=== PATIENT | male | born 1970 | race Caucasian/White ===

== ENCOUNTER 2017-08-13 06:52 | Observation (INO) | payer SELFPAY ==
[~2017-08-13] VITALS: Ht 172.7 cm; Wt 63.5 kg
[2017-08-13] VITALS (8 sets, daily range): BP systolic 100–163; BP diastolic 62–73; PULSE 62–87; RESP 16–18; TEMP 97.4–98.8; O2SAT 97–100
[~2017-08-13 06:52] MED LIST: LAMO25 PO; PANT20 PO; PRAZ5CAP PO
[2017-08-13] MEDS ORDERED: ASPIRIN 325 MG TAB PO ONE (07:30)
[2017-08-13] MEDS ORDERED: SODIUM CHLORIDE 0.9% FLUSH 10 ML FLUSH IVF PRN (07:30)
--- NOTE | 2017-08-13 07:37 | PD ---
HPI Chief Complaint: Chest Pain Time Seen by Provider: 07:25 Travel History International Travel<30 days: No Contact w/Intl Traveler<30days: No Traveled to known affect area: No History of Present Illness HPI This patient complains of chest pain. Location is left upper chest. He says it feels like somebody sitting on him. He says it radiates toward his left arm. Duration 90 minutes. Severity is moderate. Denies shortness of breath or productive cough or fever. Patient smokes crack cocaine and his last use was 2 days ago. He denies ever using IV drugs. No history of cardiac disease. No alleviating factors. No exacerbating factors. PFSH Past Medical History Psychiatric: Yes (PTSD) Social History Alcohol Use: Yes Tobacco Use: Yes (1 PPD) Substance Use: Yes (Smokes cocaine) Allergies-Medications (Allergen,Severity, Reaction): Coded Allergies: No Known Allergies (Unverified , 07/13/17) Reported Meds & Prescriptions Reported Meds & Active Scripts Active Reported Prazosin (Prazosin HCl) 5 Mg Cap 5 Mg PO BID Protonix (Pantoprazole Sodium) 20 Mg Tab 20 Mg PO DAILY Lamictal (Lamotrigine) 25 Mg Tab 25 Mg PO BID Review of Systems General / Constitutional: No: Fever Eyes: No: Visual changes HENT: No: Headaches Cardiovascular: Positive: Chest Pain or Discomfort Respiratory: No: Shortness of Breath Gastrointestinal: No: Abdominal Pain Genitourinary: No: Dysuria Musculoskeletal: No: Pain Skin: No Rash Neurologic: No: Weakness Psychiatric: Positive: Substance Abuse, No: Depression Endocrine: No: Polydipsia Hematologic/Lymphatic: No: Easy Bruising Physical Exam Narrative GENERAL: Well-nourished, well-developed patient in no apparent distress. SKIN: Focused skin assessment reveals no rash and nodules. Skin is Warm and dry. HEAD: Atraumatic. Normocephalic. EYES: Pupils equal and round. No scleral icterus. No injection or drainage. ENT: No nasal bleeding or discharge. Mucous membranes pink and moist. NECK: Trachea midline. No JVD. CARDIOVASCULAR: Regular rate and rhythm. No murmur appreciated. RESPIRATORY: No accessory muscle use. Clear to auscultation. Breath sounds equal bilaterally. GASTROINTESTINAL: Abdomen soft, non-tender, nondistended. Hepatic and splenic margins not palpable. MUSCULOSKELETAL: No obvious deformities. No clubbing. No cyanosis. No edema. NEUROLOGICAL: Awake and alert. No obvious cranial nerve deficits. Motor grossly within normal limits. Normal speech. PSYCHIATRIC: Appropriate mood and affect; insight and judgment seems weak . Data Data Last Documented VS Vital Signs Date Time Temp Pulse Resp B/P (MAP) Pulse Ox O2 Delivery O2 Flow Rate FiO2 08/13/17 11:04 62 17 100/62 (75) 97 Room Air 08/13/17 07:00 97.4 Orders Orders Electrocardiogram (08/13/17 07:30) Basic Metabolic Panel (Bmp) (08/13/17 07:30) Ckmb (Isoenzyme) Profile (08/13/17 07:30) Complete Blood Count With Diff (08/13/17 07:30) Prothrombin Time / Inr (Pt) (08/13/17 07:30) Act Partial Throm Time (Ptt) (08/13/17 07:30) Troponin I (08/13/17 07:30) Chest, Single Ap (08/13/17 07:30) Ecg Monitoring (08/13/17 07:30) Iv Access Insert/Monitor (08/13/17 07:30) Oximetry (08/13/17 07:30) Aspirin (Aspirin) (08/13/17 07:30) Sodium Chloride 0.9% Flush (Ns Flush) (08/13/17 07:30) Labs Laboratory Tests Test 08/13/17 07:56 White Blood Count 5.0 TH/MM3 Red Blood Count 4.44 MIL/MM3 Hemoglobin 13.7 GM/DL Hematocrit 40.7 % Mean Corpuscular Volume 91.8 FL Mean Corpuscular Hemoglobin 30.9 PG Mean Corpuscular Hemoglobin Concent 33.7 % Red Cell Distribution Width 13.2 % Platelet Count 258 TH/MM3 Mean Platelet Volume 8.2 FL Neutrophils (%) (Auto) 60.7 % Lymphocytes (%) (Auto) 26.0 % Monocytes (%) (Auto) 10.5 % Eosinophils (%) (Auto) 2.0 % Basophils (%) (Auto) 0.8 % Neutrophils # (Auto) 3.0 TH/MM3 Lymphocytes # (Auto) 1.3 TH/MM3 Monocytes # (Auto) 0.5 TH/MM3 Eosinophils # (Auto) 0.1 TH/MM3 Basophils # (Auto) 0.0 TH/MM3 CBC Comment DIFF FINAL Differential Comment Prothrombin Time 11.1 SEC Prothromb Time International Ratio 1.1 RATIO Activated Partial Thromboplast Time 25.0 SEC Blood Urea Nitrogen 7 MG/DL Creatinine 1.10 MG/DL Random Glucose 97 MG/DL Calcium Level 8.8 MG/DL Sodium Level 143 MEQ/L Potassium Level 4.1 MEQ/L Chloride Level 107 MEQ/L Carbon Dioxide Level 29.3 MEQ/L Anion Gap 7 MEQ/L Estimat Glomerular Filtration Rate 72 ML/MIN Total Creatine Kinase 82 U/L Troponin I LESS THAN 0.02 NG/ML MDM Medical Decision Making Medical Screen Exam Complete: Yes Emergency Medical Condition: Yes Medical Record Reviewed: Yes Differential Diagnosis Differential diagnosis includes IL, angina, pericarditis, pleurisy, GERD, anxiety. Narrative Course I have reviewed the patient's electronic medical record. Patient was hospitalized recently for drug ingestion agitation and left AMA the following day He is here today for chest pain. His EKG shows sinus rhythm and no ST elevation I gave him an aspirin I reviewed his chest x-ray Extended cardiac monitoring reveals sinus rhythm without ectopy Labs are sent He has risk factors of cigarette smoking and reports family history of CAD with IL in father I reviewed all of his labs which are normal including metabolic studies CBC and cardiac enzymes He is currently pain-free He will be a 23 hour observation in the chest pain center in order to rule out cardiac cause of his symptoms Diagnosis Primary Impression: Chest pain Qualified Codes: R07.9 - Chest pain, unspecified Additional Impressions: Smoker unmotivated to quit Family history of coronary artery disease in father Admitting Information Admitting Physician Requests: Observation John Diana MD Aug 13, 2017 07:37
--- NOTE | 2017-08-13 08:00 | RADRPT ---
EXAM DATE/TIME: 08/13/2017 07:43 [facility] COMPARISON: CHEST SINGLE AP, July 13, 2017, 22:28. INDICATIONS : Patient states chest pains that started this morning. MEDICAL HISTORY : None. SURGICAL HISTORY : None. ENCOUNTER: Initial ACUITY: 1 day PAIN SCORE: 7/10 LOCATION: Bilateral chest FINDINGS: A single view of the chest demonstrates the lungs to be symmetrically aerated without evidence of mas s, infiltrate or effusion. The cardiomediastinal contours are unremarkable. Osseous structures are intact. CONCLUSION: No acute disease. Taqueria Malone MD on August 13, 2017 at 7:57 Board Certified Radiologist. This report was verified electronically.
[2017-08-13 08:07] LABS: BASOPHIL % 0.8 % (0.0-2.0); EOSINOPHIL # 0.1 TH/MM3 (0-0.4); HEMATOCRIT 40.7 % (39.0-51.0); HEMOGLOBIN 13.7 GM/DL (13.0-17.0); LYMPHOCYTE # 1.3 TH/MM3 (1.0-4.8); MEAN CELL VOLUME 91.8 FL (80.0-100.0); MEAN CORPUSCULAR HEMOGLOBIN 30.9 PG (27.0-34.0); MEAN CORPUSCULAR HGB CONC 33.7 % (32.0-36.0); MEAN PLATELET VOLUME 8.2 FL (7.0-11.0); MONO % 10.5 % (0.0-8.0); MONOCYTE # 0.5 TH/MM3 (0-0.9); NEUT % 60.7 % (16.0-70.0); PLATELET COUNT 258 TH/MM3 (150-450); RED BLOOD COUNT 4.44 MIL/MM3 (4.50-5.90); RED CELL DISTRIBUTION WIDTH 13.2 % (11.6-17.2)
[2017-08-13 08:17] LABS: INTERNATIONAL NORMALIZED RATIO 1.1 RATIO; PROTHROMBIN TIME - PATIENT 11.1 SEC (9.8-11.6)
[2017-08-13 08:29] LABS: BICARBONATE 29.3 MEQ/L (21.0-32.0); BLOOD UREA NITROGEN 7 MG/DL (7-18); CALCIUM 8.8 MG/DL (8.5-10.1); CHLORIDE 107 MEQ/L (98-107); GLOMERULAR FILTRATION RATE 72 ML/MIN (>89); GLUCOSE,RANDOM 97 MG/DL (74-106); SODIUM (NA) 143 MEQ/L (136-145)
[2017-08-13 08:33] LABS: TROPONIN I LESS THAN 0.02 NG/ML (0.02-0.05)
[2017-08-13] MEDS ORDERED: ONDANSETRON HCL 4 MG/2 ML VIAL IV PUSH PRN (12:30)
[2017-08-13] MEDS ORDERED: NITROGLYCERIN 0.4 MG SL 25 TABS/BTL SL PRN (12:30)
[2017-08-13] MEDS ORDERED: ACETAMINOPHEN 500 MG CPLT PO PRN (12:30)
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
[2017-08-13 14:44] LABS: TROPONIN I LESS THAN 0.02 NG/ML (0.02-0.05)
[2017-08-13] MEDS ORDERED: KETOROLAC TROMETHAMINE 30 MG/ML (IVP) VIAL IV PUSH ONE (15:00)
[2017-08-13 16:37] LABS: TROPONIN I LESS THAN 0.02 NG/ML (0.02-0.05)
--- NOTE | 2017-08-13 17:14 | EKG ---
Date Performed: 08/13/2017 Time Performed: 13:46:07 PTAGE: 47 years EKG: SINUS BRADYCARDIA MODERATE VOLTAGE CRITERIA FOR LVH, CONSIDER NORMAL VARIANT BORDERLINE ECG PREVIOUS TRACING : 08/13/2017 07.18 Since previous tracing, no significant change noted DOCTOR: Darrius Reed Interpretating Date/Time 08/13/2017 17:13:38
--- NOTE | 2017-08-13 18:07 | HHI.DCPOC ---
Discharge Care Plan Diagnosis: (1) Atypical chest pain (2) Tobacco abuse (3) Substance abuse Goals to Promote Your Health * To prevent worsening of your condition and complications * To maintain your health at the optimal level Directions to Meet Your Goals Take your medications as prescribed Follow your dietary instruction Follow activity as directed Keep your appointments as scheduled Take your immunizations and boosters as scheduled If your symptoms worsen call your PCP, if no PCP go to Urgent Care Center or Emergency Room Smoking is Dangerous to Your Health. Avoid second hand smoke Call the 24-hour hour crisis hotline for domestic abuse at Samreen Gonzalez Aug 13, 2017 18:07
[2017-08-13] MEDS ORDERED: CALCIUM CARBONATE 500 MG CHEWABLE TAB CHEW ONE (18:15)
[2017-08-13] MEDS ORDERED: PANTOPRAZOLE SOD 40 MG DELAYED RELEASE TAB PO ONE (18:15)
[2017-08-13] MEDS ORDERED: SODIUM CHLORIDE 0.9% FLUSH 10 ML FLUSH IV FLUSH SCH (21:00)
[2017-08-14] MEDS ORDERED: ASPIRIN 325 MG TAB PO SCH (09:00)
--- NOTE | 2017-08-14 15:58 | EKG ---
Date Performed: 08/13/2017 Time Performed: 15:38:31 PTAGE: 47 years EKG: SINUS BRADYCARDIA MINIMAL VOLTAGE CRITERIA FOR LVH, CONSIDER NORMAL VARIANT BORDERLINE ECG PREVIOUS TRACING : 08/13/2017 13.46 No significant change from previous tracing noted. DOCTOR: Moises Marcos Interpretating Date/Time 08/14/2017 15:57:22
--- NOTE | 2017-08-14 18:56 | TR ---
Date Performed: 08/13/2017 Time Performed: 17:10:29 DOCTOR: Qi Yeager DRUG LIST: CLINICAL HISTORY: REASON FOR TEST: Chest pain REASON FOR ENDING: OBSERVATION: CONCLUSION: Gus protocol completed. Stopped sec to exceeding target heart rate and leg fatigue . Maximum EQ=061 Target HR Achieved=87.0% Maximum NH=356/94 Total Exercise Time=9:51. No reprod ches t discomfort. No ectopy. Upsloping st segments. Great exercise tolerance. Normal bp response. Recover y quick and unremarkable. COMMENTS: No ischemia
--- NOTE | 2017-08-14 18:57 | EKG ---
Date Performed: 08/13/2017 Time Performed: 07:18:20 PTAGE: 47 years EKG: Sinus rhythm MINIMAL VOLTAGE CRITERIA FOR LVH, CONSIDER NORMAL VARIANT BORDERLINE ECG Since PREVIOUS TRACING , no significant change noted DOCTOR: Qi Yeager Interpretating Date/Time 08/14/2017 18:56:35
== END 2017-08-13 22:09 | disposition home or self-care (01) ==
LOC: NEPC 06:52 → NEDA 11:16 → NEPHCDU 14:39
PROVIDERS: ADMIT Internal Medicine Cardiovascular Disease; ATTEND Internal Medicine Cardiovascular Disease
DX: R07.89 Other chest pain (principal); F17.210 Nicotine dependence, cigarettes, uncomplicated; F14.90 Cocaine use, unspecified, uncomplicated; I10 Essential (primary) hypertension; M79.1 Myalgia; R20.0 Anesthesia of skin; K21.9 Gastro-esophageal reflux disease without esophagitis; G40.909 Epilepsy, unspecified, not intractable, without status epilepticus; Z82.49 Family history of ischemic heart disease and other diseases of the circulatory system
CPT/HCPCS: 71045; 80048; 82550; 84484; 85025; 85610; 85730; 93005; 93017; 96374; 96376; 99285; G0378; J1885

== ENCOUNTER 2017-08-14 00:20 | Emergency (ER) | payer SELFPAY ==
[~2017-08-14] VITALS: Ht 172.7 cm; Wt 65.0 kg
[2017-08-14 00:49] VITALS: BP 112/62; PULSE 91; RESP 18; TEMP 98.1; O2SAT 98
[2017-08-14] MEDS ORDERED: ASPIRIN 81 MG CHEW TAB PO ONE (05:15)
[2017-08-14] MEDS ORDERED: NITROGLYCERIN 0.4 MG SL 25 TABS/BTL SL ONE (05:15)
[2017-08-14] MEDS ORDERED: SODIUM CHLORIDE 0.9% FLUSH 10 ML FLUSH IVF PRN (05:15)
--- NOTE | 2017-08-14 05:15 | PD ---
HPI Chief Complaint: Chest Pain Time Seen by Provider: 04:56 Travel History International Travel<30 days: No Contact w/Intl Traveler<30days: No Traveled to known affect area: No History of Present Illness HPI The patient is a 47 year old male who presents to the [facility] emergency department with a history of chest pain that he reports began at 5 AM on Sunday. The patient reports that he was evaluated in the chest pain center and had a stress test done that was reportedly unremarkable. The patient reports that after being discharged home the pain intensified and he was told that if his symptoms got worse he should come back to the emergency department. He denies having a primary care physician. He reports that the pain is in the left side of his chest and is constant but it waxes and wanes in severity. He reports that the pain is sharp in character. He denies having any prior history of cardiac disease. The patient does however have a history of cocaine use which was last used 3 days ago, tobacco use, and PTSD. The patient reports that he has chronic problems with acid reflux and heartburn. He reports that he is currently on Protonix for this. The patient reports that the chest pain is now a 7 out of 10 in severity. He denies having any radiation of the pain. He reports that today he has had nausea and vomiting 3 with the pain. He reports having associated shortness of breath. On review of systems otherwise, the patient reports that he does have generalized abdominal pain. He reports that he has had this for the last 2 years. He denies having any known recent fevers, cough or congestion, neck pain, diarrhea, urinary symptoms, or neurologic symptoms. FOR[facility]LY [facility] Past Medical History Narrative Medical The patient's past medical history is significant for posttraumatic stress disorder, acid reflux, cocaine use, tobacco use. Blood Disorders: No Cancer: No Cardiovascular Problems: No Diminished Hearing: No Endocrine: No Genitourinary: No Immune Disorder: No Musculoskeletal: No Neurologic: No Psychiatric: Yes (PTSD) Reproductive: No Respiratory: No Tetanus Vaccination: < 5 Years Influenza Vaccination: No Past Surgical History Narrative Surgical The patient's past surgical history is reportedly none. Surgical History: No Previous Surgery Other Surgery: No Social History Alcohol Use: No Tobacco Use: Yes (1 PPD) Substance Use: Yes (Smokes cocainelast 3 days ago) Allergies-Medications (Allergen,Severity, Reaction): Coded Allergies: No Known Allergies (Unverified , 07/13/17) Reported Meds & Prescriptions Reported Meds & Active Scripts Active Reported Prazosin (Prazosin HCl) 5 Mg Cap 5 Mg PO BID Protonix (Pantoprazole Sodium) 20 Mg Tab 20 Mg PO DAILY Lamictal (Lamotrigine) 25 Mg Tab 25 Mg PO BID Review of Systems Except as stated in HPI: all other systems reviewed are Neg General / Constitutional: No: Fever Eyes: No: Visual changes HENT: No: Headaches, Congestion Cardiovascular: Positive: Chest Pain or Discomfort, Diaphoresis, Dyspnea on exertion Respiratory: Positive: Shortness of Breath, No: Cough Gastrointestinal: Positive: Nausea, Vomiting, Abdominal Pain (Chronic for the last 2 years), No: Diarrhea Genitourinary: No: Dysuria Musculoskeletal: No: Pain Skin: No Rash Neurologic: No: Weakness Psychiatric: No: Depression Endocrine: No: Polydipsia Hematologic/Lymphatic: No: Easy Bruising Physical Exam Narrative General: The patient is a well-developed well-nourished male in no acute distress. Head and Neck exam: Head is normocephalic atraumatic. Eyes: EOMI, pupils are equal round and reactive to light. Nose: Midline septum with pink mucous membranes Mouth: Dentition unremarkable. Moist mucus membranes. Posterior oropharynx is not erythematous. No tonsillar hypertrophy. Uvula midline. Airway patent. Neck: No palpable lymphadenopathy. No nuchal rigidity. No thyromegaly. Cardiovascular: Regular rate and rhythm without murmurs, gallops, or rubs. No pulse deficit to the extremities on simultaneous auscultation and palpation of his radial artery. Lungs: Clear to auscultation bilaterally. No wheezes, rhonchi, or rales. Abdomen: Soft, with reported generalized tenderness on palpation worse in the right upper quadrant of the abdomen. Negative Smith sign. No point tenderness on palpation specifically over McBurney's point. No guarding, rebound, or rigidity. Normal bowel sounds are audible. Extremities: No clubbing, cyanosis, or edema. 2+ pulses in all 4 extremities. No calf tenderness on palpation. Back: No costovertebral angle tenderness to palpation. Neurologic Exam: Grossly nonfocal. Skin Exam: No rash noted. Intact skin that is warm and dry. Data Data Last Documented VS Vital Signs Date Time Temp Pulse Resp B/P (MAP) Pulse Ox O2 Delivery O2 Flow Rate FiO2 08/14/17 09:10 08/14/17 09:08 85 17 99 Room Air 08/14/17 00:49 98.1 Orders Orders Electrocardiogram (08/14/17 05:03) B-Type Natriuretic Peptide (08/14/17 05:03) Ckmb (Isoenzyme) Profile (08/14/17 05:03) Complete Blood Count With Diff (08/14/17 05:03) Comprehensive Metabolic Panel (08/14/17 05:03) Magnesium (Mg) (08/14/17 05:03) Prothrombin Time / Inr (Pt) (08/14/17 05:03) Act Partial Throm Time (Ptt) (08/14/17 05:03) Troponin I (08/14/17 05:03) Ecg Monitoring (08/14/17 05:03) Bilateral Bp Monitoring (08/14/17 05:03) Iv Access Insert/Monitor (08/14/17 05:03) Oximetry (08/14/17 05:03) Oxygen Administration (08/14/17 05:03) Aspirin Chew (Aspirin Chew) (08/14/17 05:15) Sodium Chloride 0.9% Flush (Ns Flush) (08/14/17 05:15) Nitroglycerin Sl (Nitrostat Sl) (08/14/17 05:15) Chest, Pa & Lat (08/14/17 05:03) Drug Screen, Random Urine (08/14/17 05:03) Alcohol (Ethanol) (08/14/17 05:03) Ct Pulmonary Angiogram (08/14/17 05:32) Iohexol 350 Inj (Omnipaque 350 Inj) (08/14/17 06:35) Ed Discharge Order (08/14/17 08:03) Labs Laboratory Tests Test 08/14/17 05:20 White Blood Count 5.9 TH/MM3 Red Blood Count 4.15 MIL/MM3 Hemoglobin 12.8 GM/DL Hematocrit 37.8 % Mean Corpuscular Volume 91.0 FL Mean Corpuscular Hemoglobin 30.8 PG Mean Corpuscular Hemoglobin Concent 33.8 % Red Cell Distribution Width 13.1 % Platelet Count 254 TH/MM3 Mean Platelet Volume 8.6 FL Neutrophils (%) (Auto) 54.7 % Lymphocytes (%) (Auto) 31.5 % Monocytes (%) (Auto) 10.0 % Eosinophils (%) (Auto) 3.1 % Basophils (%) (Auto) 0.7 % Neutrophils # (Auto) 3.2 TH/MM3 Lymphocytes # (Auto) 1.8 TH/MM3 Monocytes # (Auto) 0.6 TH/MM3 Eosinophils # (Auto) 0.2 TH/MM3 Basophils # (Auto) 0.0 TH/MM3 CBC Comment DIFF FINAL Differential Comment Prothrombin Time 10.7 SEC Prothromb Time International Ratio 1.1 RATIO Activated Partial Thromboplast Time 24.5 SEC Blood Urea Nitrogen 29 MG/DL Creatinine 1.07 MG/DL Random Glucose 92 MG/DL Total Protein 6.9 GM/DL Albumin 3.7 GM/DL Calcium Level 9.0 MG/DL Magnesium Level 2.4 MG/DL Alkaline Phosphatase 62 U/L Aspartate Amino Transf (AST/SGOT) 32 U/L Alanine Aminotransferase (ALT/SGPT) 60 U/L Total Bilirubin 0.2 MG/DL Sodium Level 141 MEQ/L Potassium Level 3.5 MEQ/L Chloride Level 106 MEQ/L Carbon Dioxide Level 27.3 MEQ/L Anion Gap 8 MEQ/L Estimat Glomerular Filtration Rate 74 ML/MIN Total Creatine Kinase 84 U/L Troponin I LESS THAN 0.02 NG/ML B-Type Natriuretic Peptide 2 PG/ML Ethyl Alcohol Level LESS THAN 3 MG/DL MDM Medical Decision Making Medical Screen Exam Complete: Yes Emergency Medical Condition: Yes Medical Record Reviewed: Yes Interpretation(s) Last Impressions CT Angiography 08/14/17 0532 Signed Impressions: Service Date/Time: Monday, August 14, 2017 06:25 - CONCLUSION: The study is negative for pulmonary embolism. Oliver Diamond MD Chest X-Ray 08/14/17 0503 Signed Impressions: Service Date/Time: Monday, August 14, 2017 05:13 - CONCLUSION: No acute cardiopulmonary disease. Oliver Diamond MD Differential Diagnosis Acute coronary syndrome, versus anxiety disorder, versus acid reflux, versus pulmonary embolism, versus pneumothorax, versus pleurisy. Narrative Course During the course of the patient's emergency department visit, the patient's history, examination, and differential diagnosis were reviewed with the patient. The patient was placed on a quality assurance monitor chassis with oximetry and frequent blood pressure monitoring. The patient had IV access obtained and blood work sent for analysis. The patient was initially provided aspirin 324 mg p.o. 1, nitroglycerin sublingual 1. The patient's studies were reviewed and remarkable for A white count of 5.9, hemoglobin 12.8, platelets 254 with monocytes 10, chest x-ray shows no acute cardiopulmonary disease, CTA to rule out PE was negative. The patient's chemistry panel and cardiac enzymes are pending at the conclusion of my shift. The patient's case was checked out to the oncoming emergency physician to disposition the patient based on the conclusion of his workup. I suspect that the patient will be able to be discharged home as the patient was in the chest pain center for admission and stress testing yesterday which was reportedly negative. Diagnosis Primary Impression: Atypical chest pain Susie Ortiz MD Aug 14, 2017 05:15
[2017-08-14 05:40] VITALS: BP 105/68; PULSE 78; RESP 18; O2SAT 100
--- NOTE | 2017-08-14 06:33 | RADRPT ---
EXAM DATE/TIME: 08/14/2017 05:13 [facility] COMPARISON: No previous studies available for comparison. INDICATIONS : Short of breath. MEDICAL HISTORY : None. SURGICAL HISTORY : None. ENCOUNTER: Initial ACUITY: 1 day PAIN SCORE: 0/10 LOCATION: Bilateral chest FINDINGS: PA and lateral views of the chest demonstrate the lungs to be symmetrically aerated without evidence of mass, infiltrate or effusion. The cardiomediastinal contours are unremarkable. Osseous structure s are intact. CONCLUSION: No acute cardiopulmonary disease. Oliver Diamond MD on August 14, 2017 at 6:31 Board Certified Radiologist. This report was verified electronically.
[2017-08-14] MEDS ORDERED: IOHEXOL 350 MG/ML 10 ML VIAL (for RAD DIAG) IVCONTRAST ONE (06:35)
[2017-08-14 06:56] LABS: AUTOMATED NEUTROPHIL # 3.2 TH/MM3 (1.8-7.7); BASOPHIL % 0.7 % (0.0-2.0); EOSINOPHIL # 0.2 TH/MM3 (0-0.4); EOSINOPHIL % 3.1 % (0.0-4.0); HEMATOCRIT 37.8 % (39.0-51.0); HEMOGLOBIN 12.8 GM/DL (13.0-17.0); LYMPH % 31.5 % (9.0-44.0); LYMPHOCYTE # 1.8 TH/MM3 (1.0-4.8); MEAN CORPUSCULAR HEMOGLOBIN 30.8 PG (27.0-34.0); MEAN CORPUSCULAR HGB CONC 33.8 % (32.0-36.0); MEAN PLATELET VOLUME 8.6 FL (7.0-11.0); MONOCYTE # 0.6 TH/MM3 (0-0.9); NEUT % 54.7 % (16.0-70.0); PLATELET COUNT 254 TH/MM3 (150-450); RED BLOOD COUNT 4.15 MIL/MM3 (4.50-5.90); RED CELL DISTRIBUTION WIDTH 13.1 % (11.6-17.2); WHITE BLOOD COUNT 5.9 TH/MM3 (4.0-11.0)
--- NOTE | 2017-08-14 06:56 | RADRPT ---
EXAM DATE/TIME: 08/14/2017 06:25 [facility] COMPARISON: No previous studies available for comparison. INDICATIONS : Chest pain after drug use. IV CONTRAST: 75 cc Omnipaque 350 (iohexol) IV RADIATION DOSE: 6.81 CTDIvol (mGy) MEDICAL HISTORY : None SURGICAL HISTORY : None. ENCOUNTER: Initial ACUITY: 1 day PAIN SCALE: 5/10 LOCATION: Bilateral chest TECHNIQUE: Volumetric scanning of the chest was performed using a pulmonary embolism protocol MIP images were re constructed. Using automated exposure control and adjustment of the mA and/or kV according to patien t size, radiation dose was kept as low as reasonably achievable to obtain optimal diagnostic quality images. DICOM format image data is available electronically for review and comparison. Follow-up recommendations for detected pulmonary nodules are based at a minimum on nodule size and pa tient risk factors according to Fleischner Society Guidelines. FINDINGS: PULMONARY ARTERIES: No filling defects are seen in the pulmonary arteries through the segmental level. LUNGS: There is no consolidation or pneumothorax . No concerning pulmonary nodule is visualized. PLEURAE: There is no pleural thickening or pleural effusion. MEDIASTINUM: There is good visualization of the great vessels of the middle mediastinum. No evidence of mediastin al or hilar adenopathy/mass. CONCLUSION: The study is negative for pulmonary embolism. Oliver Diamond MD on August 14, 2017 at 6:54 Board Certified Radiologist. This report was verified electronically.
[2017-08-14 07:07] LABS: INTERNATIONAL NORMALIZED RATIO 1.1 RATIO; PROTHROMBIN TIME - PATIENT 10.7 SEC (9.8-11.6)
[2017-08-14 07:40] LABS: ALBUMIN 3.7 GM/DL (3.4-5.0); ALKALINE PHOSPHATASE 62 U/L (45-117); ALT (GPT) 60 U/L (12-78); AST (GOT) 32 U/L (15-37); BICARBONATE 27.3 MEQ/L (21.0-32.0); BLOOD UREA NITROGEN 29 MG/DL (7-18); CHLORIDE 106 MEQ/L (98-107); CREATININE 1.07 MG/DL (0.60-1.30); GLOMERULAR FILTRATION RATE 74 ML/MIN (>89); GLUCOSE,RANDOM 92 MG/DL (74-106); MAGNESIUM 2.4 MG/DL (1.5-2.5); SODIUM (NA) 141 MEQ/L (136-145); TOTAL BILIRUBIN ADULT 0.2 MG/DL (0.2-1.0); TOTAL PROTEIN 6.9 GM/DL (6.4-8.2); TROPONIN I LESS THAN 0.02 NG/ML (0.02-0.05)
--- NOTE | 2017-08-14 08:04 | PD ---
Physical Exam Date Seen by Provider: Aug 14, 2017 Time Seen by Provider: 07:00 Narrative Patient seen and evaluated initially by Dr. Ortiz, please see Dr. Ortiz's notes for further details. Patient has been here over the last few days for similar complaints, chest discomfort, had a stress test done which was fairly unremarkable. Cardiac enzymes have all been negative. And as per discussion with Dr. Ortiz, plan would be to release the patient would follow-up to primary care physician considering negative workup. EKG shows NSR, no ST elevation or depression, and no arrhythmias. No significant T-wave inversions. Laboratory Tests Test 08/14/17 05:20 Red Blood Count 4.15 MIL/MM3 (4.50-5.90) Hemoglobin 12.8 GM/DL (13.0-17.0) Hematocrit 37.8 % (39.0-51.0) Monocytes (%) (Auto) 10.0 % (0.0-8.0) Blood Urea Nitrogen 29 MG/DL (7-18) Estimat Glomerular Filtration Rate 74 ML/MIN (>89) Troponin I LESS THAN 0.02 NG/ML Data Data Last Documented VS Vital Signs Date Time Temp Pulse Resp B/P (MAP) Pulse Ox O2 Delivery O2 Flow Rate FiO2 08/14/17 05:40 84 Room Air 08/14/17 05:40 18 105/68 (80) 100 08/14/17 00:49 98.1 Orders Orders Electrocardiogram (08/14/17 05:03) B-Type Natriuretic Peptide (08/14/17 05:03) Ckmb (Isoenzyme) Profile (08/14/17 05:03) Complete Blood Count With Diff (08/14/17 05:03) Comprehensive Metabolic Panel (08/14/17 05:03) Magnesium (Mg) (08/14/17 05:03) Prothrombin Time / Inr (Pt) (08/14/17 05:03) Act Partial Throm Time (Ptt) (08/14/17 05:03) Troponin I (08/14/17 05:03) Ecg Monitoring (08/14/17 05:03) Bilateral Bp Monitoring (08/14/17 05:03) Iv Access Insert/Monitor (08/14/17 05:03) Oximetry (08/14/17 05:03) Oxygen Administration (08/14/17 05:03) Aspirin Chew (Aspirin Chew) (08/14/17 05:15) Sodium Chloride 0.9% Flush (Ns Flush) (08/14/17 05:15) Nitroglycerin Sl (Nitrostat Sl) (08/14/17 05:15) Chest, Pa & Lat (08/14/17 05:03) Drug Screen, Random Urine (08/14/17 05:03) Alcohol (Ethanol) (08/14/17 05:03) Ct Pulmonary Angiogram (08/14/17 05:32) Iohexol 350 Inj (Omnipaque 350 Inj) (08/14/17 06:35) Ed Discharge Order (08/14/17 08:03) Labs Laboratory Tests Test 08/14/17 05:20 White Blood Count 5.9 TH/MM3 Red Blood Count 4.15 MIL/MM3 Hemoglobin 12.8 GM/DL Hematocrit 37.8 % Mean Corpuscular Volume 91.0 FL Mean Corpuscular Hemoglobin 30.8 PG Mean Corpuscular Hemoglobin Concent 33.8 % Red Cell Distribution Width 13.1 % Platelet Count 254 TH/MM3 Mean Platelet Volume 8.6 FL Neutrophils (%) (Auto) 54.7 % Lymphocytes (%) (Auto) 31.5 % Monocytes (%) (Auto) 10.0 % Eosinophils (%) (Auto) 3.1 % Basophils (%) (Auto) 0.7 % Neutrophils # (Auto) 3.2 TH/MM3 Lymphocytes # (Auto) 1.8 TH/MM3 Monocytes # (Auto) 0.6 TH/MM3 Eosinophils # (Auto) 0.2 TH/MM3 Basophils # (Auto) 0.0 TH/MM3 CBC Comment DIFF FINAL Differential Comment Prothrombin Time 10.7 SEC Prothromb Time International Ratio 1.1 RATIO Activated Partial Thromboplast Time 24.5 SEC Blood Urea Nitrogen 29 MG/DL Creatinine 1.07 MG/DL Random Glucose 92 MG/DL Total Protein 6.9 GM/DL Albumin 3.7 GM/DL Calcium Level 9.0 MG/DL Magnesium Level 2.4 MG/DL Alkaline Phosphatase 62 U/L Aspartate Amino Transf (AST/SGOT) 32 U/L Alanine Aminotransferase (ALT/SGPT) 60 U/L Total Bilirubin 0.2 MG/DL Sodium Level 141 MEQ/L Potassium Level 3.5 MEQ/L Chloride Level 106 MEQ/L Carbon Dioxide Level 27.3 MEQ/L Anion Gap 8 MEQ/L Estimat Glomerular Filtration Rate 74 ML/MIN Total Creatine Kinase 84 U/L Troponin I LESS THAN 0.02 NG/ML B-Type Natriuretic Peptide 2 PG/ML Ethyl Alcohol Level LESS THAN 3 MG/DL MDM Medical Record Reviewed: Yes Supervised Visit with JASMYN: No Diagnosis Primary Impression: Atypical chest pain Disposition: 01 DISCHARGE HOME Condition: Stable Lindsey Stacy MD Aug 14, 2017 08:04
--- NOTE | 2017-08-14 08:44 | EKG ---
Date Performed: 08/14/2017 Time Performed: 01:24:57 PTAGE: 47 years EKG: Sinus rhythm MINIMAL VOLTAGE CRITERIA FOR LVH, CONSIDER NORMAL VARIANT BORDERLINE ECG PREVIOUS TRACING : 08/13/2017 15.38 No significant change from previous tracing noted. DOCTOR: Moises Marcos Interpretating Date/Time 08/14/2017 08:27:11
[2017-08-14 09:08] VITALS: BP 110/76; PULSE 85; RESP 17; O2SAT 99
== END 2017-08-14 09:12 | disposition home or self-care (01) ==
LOC: NEPC 00:20
DX: R07.89 Other chest pain (principal); R06.02 Shortness of breath; R11.2 Nausea with vomiting, unspecified; F14.90 Cocaine use, unspecified, uncomplicated; F17.210 Nicotine dependence, cigarettes, uncomplicated; K21.9 Gastro-esophageal reflux disease without esophagitis; Z79.899 Other long term (current) drug therapy
CPT/HCPCS: 71046; 71275; 80053; 80307; 82550; 83735; 83880; 84484; 85025; 85610; 85730; 93005; 99285; Q9967